=== PATIENT | male | born 1985 | race Caucasian/White ===

== ENCOUNTER 2017-01-31 19:02 | Emergency (ER) | payer BC | END 2017-01-31 19:07 | disposition home or self-care (01) | LOC: CFTX 19:02 | DX: S61.210A Laceration without foreign body of right index finger without damage to nail, initial encounter (principal); Z88.8 Allergy status to other drugs, medicaments and biological substances; Z23 Encounter for immunization; W45.8XXA Other foreign body or object entering through skin, initial encounter; Y92.89 Other specified places as the place of occurrence of the external cause | CPT/HCPCS: 12001; 90471; 90715; 99283 ==